=== PATIENT | female | born 1985 | race Caucasian/White ===

== ENCOUNTER 2022-09-18 08:37 | Day surgery (SDC) | payer BC ==
[~2022-09-18] VITALS: Ht 160 cm; Wt 51.9 kg
[2022-09-18] MEDS ORDERED: LR 1,000 ML IV.SOLN IV ONE (10:55)
[2022-09-18] MEDS ORDERED: ONDANSETRON HCL 4 MG/2 ML VIAL ONE (10:55)
[2022-09-18] MEDS ORDERED: MIDAZOLAM HCL 5 MG/5 ML VIAL ONE (10:55)
[2022-09-18] MEDS ORDERED: DEXAMETHASONE SOD PHOSPHATE 4 MG/ML VIAL ONE (10:55)
[2022-09-18] MEDS ORDERED: LIDOCAINE 2%, 20 ML MDV ONE (10:55)
[2022-09-18] MEDS ORDERED: ROCURONIUM BROMIDE 10 MG/ML (ZEMURON) ONE (10:55)
[2022-09-18] MEDS ORDERED: METHYLERGONOVINE MALEATE 0.2 MG/ML AMP ONE ×2 (10:55→11:36)
[2022-09-18] MEDS ORDERED: NS IRRIG SOLN 1000 ML IR ONE (10:55)
[2022-09-18] MEDS ORDERED: OXYTOCIN 10 UNIT/ML VIAL ONE (10:55)
[2022-09-18] MEDS ORDERED: SUGAMMADEX SODIUM 200 MG/2 ML VIAL IV ONE (10:55)
[2022-09-18] MEDS ORDERED: DESFLURANE 15 MIN GAS INH ONE (10:55)
[2022-09-18] MEDS ORDERED: PROPOFOL 200MG/ 20ML VIAL (DIPRIVAN) IV ONE (10:55)
[2022-09-18] MEDS ORDERED: fentaNYL CITRATE/PF 100 MCG/2 ML AMP ONE (10:55)
[2022-09-18] MEDS ORDERED: CEFAZOLIN SOD 1 GM in D5W 50 ML IV ONE (11:00)
[2022-09-18] MEDS ORDERED: ACETAMINOPHEN I.V. 1000 MG 100 ML IV ONE (11:18)
[2022-09-18] MEDS ORDERED: LR 1,000 ML IV SCH (11:30)
[2022-09-18] MEDS ORDERED: METOCLOPRAMIDE HCL 10 MG/2 ML VIAL IVP PRN (11:30)
[2022-09-18] MEDS ORDERED: MEPERIDINE HCL/PF 25 MG/ML DISP.SYRIN IVP PRN (11:30)
[2022-09-18] MEDS ORDERED: HYDROmorphone 1 MG/ML INJ. CARTRIDGE IVP PRN ×2 (11:30)
[2022-09-18] MEDS ORDERED: ONDANSETRON HCL 4 MG/2 ML VIAL IVP PRN (11:45)
[2022-09-18] MEDS ORDERED: HYDROcodone/ACETAMIN 5-325 MG TAB (NORCO/ VICODIN) PO PRN (11:45)
[2022-09-18] MEDS ORDERED: OXYCODONE/ACETAMINOPHEN 5-325 TABLET PO PRN ×2 (11:45)
[2022-09-18 16:21] VITALS: BP_SYST 117
== END 2022-09-18 15:00 | disposition home or self-care (01) ==
LOC: SDS 08:37 → SMU 08:38 → SDS 15:00
PROVIDERS: ATTEND Specialist
DX: O28.5 Abnormal chromosomal and genetic finding on antenatal screening of mother (principal); O28.3 Abnormal ultrasonic finding on antenatal screening of mother; O35.8XX0 Maternal care for other (suspected) fetal abnormality and damage, not applicable or unspecified; Z3A.13 13 weeks gestation of pregnancy
CPT/HCPCS: 59812; 36415; 88305; 87426; J3490; J0690; J1100; J2001; J2210; J2250; J2405; J2590; J2704; J3010; J7060; J7120; J0131